=== PATIENT | female | born 1965 | race Two or more races ===

== ENCOUNTER → 2025-08-30 | Outpatient (CLI) | payer MEDICAID, SELFPAY ==
--- NOTE | 2025-08-30 10:18 | XR_ITS ---
EXAMINATION: Thoracic spine 3 views TECHNIQUE: AP and lateral coned lateral upper dorsal spine 3 views Date and time: August 30, 2025, 10:54 a.m. INDICATIONS: Back pain 3 weeks FINDINGS: Prominent osteopenia Prominent thoracic spondylosis No acute thoracic fracture Moderate diffuse thoracic disc narrowing IMPRESSION: Moderate diffuse thoracic degenerative disc disease
--- NOTE | 2025-08-30 10:18 | XR_ITS ---
Examination: Ribs, right, with PA chest, 4 views Technique: Chest PA, RIBS AP, RPO, LPO, 4 views Exam date and time: August 30, 2025, 1027 hours INDICATIONS: Right posterior chest and rib pain 3 weeks Findings: Normal heart size No pneumothorax Prominent osteopenia No acute rib fractures IMPRESSION: No pneumothorax pulmonary contusion or hemothorax No acute rib fractures
== END | disposition home or self-care (01) ==
PROVIDERS: PCP Physician Assistant; Referring Provider Physician Assistant; Visit Provider Physician Assistant
DX: M51.34 Other intervertebral disc degeneration, thoracic region (principal); R07.89 Other chest pain
CPT/HCPCS: 71101; 72072

== ENCOUNTER 2025-09-09 09:18 | Emergency (ER) | payer MEDICAID, SELFPAY ==
[2025-09-09 09:36] VITALS: BP 175/83; PULSE 85; RESP 19; TEMP 36.9; O2SAT 97; BMI 37.9
--- NOTE | 2025-09-09 09:47 | XR_ITS ---
Examination: CT abdomen and pelvis without contrast. Coronal 3-D reconstructions. Sagittal 2-D reconstructions. Date and time of exam: September 09, 2025, 10:00 a.m., comparison March 30, 2023 INDICATIONS: Right-sided abdominal pain radiating to the back beginning 3 weeks ago, history kidney stones CTDI: vol (mGy): 16.7 DLP: (mGycm): 892 Technique: Axial images of the abdomen have been obtained, 3 mm slice thickness Intravenous contrast material has not been administered. Low dose protocols were performed. One or more of the following dose reduction techniques were used; automated exposure control, adjustment of the mA and/or KV according to patient size, use of iterative reconstruction technique. Findings: Severe diffuse fatty infiltration throughout the liver Absent gallbladder Spleen not enlarged No pancreatic or adrenal mass Bilateral renal calculi, the largest lower pole right kidney 14 mm No hydronephrosis or ureteral calculi Normal appendix No bowel obstruction No diverticulitis Contracted urinary bladder No bladder mass or bladder calculi No pelvic mass Grade 1 spondylolisthesis L5 on S1 with advanced degenerative disc disease at this level IMPRESSION: Bilateral nonobstructing renal calculi, no hydronephrosis or ureteral calculi Normal appendix Grade 1 spondylolisthesis L5 on S1 with advanced degenerative disc disease at the L5-S1 level
--- NOTE | 2025-09-09 09:48 | XR_ITS ---
EXAMINATION: PA chest single view TECHNIQUE: Upright view chest single view Date and time: September 09, 2025, 10 0 4:00 a.m. INDICATIONS: Shortness of breath today. FINDINGS: Mild prominence left ventricle No pneumonia or pulmonary edema Intact osseous structures IMPRESSION: No active disease
[2025-09-09 10:12] LABS: Collection Type, Urine Clean Catch
[2025-09-09 10:16] LABS: Basophils # (Auto) 0.1 Thou/mm3 (0.0-0.2); Basophils % (Auto) 0 % (0-2.5); Eosinophils # (Auto) 0.1 Thou/mm3 (0.0-0.5); Eosinophils % (Auto) 1 % (0-10); Hematocrit 42.4 % (36.0-46.0); Hemoglobin 14.4 g/dL (12.0-16.0); Immature Granulocytes Auto 0.06 Thou/mm3 (0.00-0.00); Lymphocytes # (Auto) 2.9 Thou/mm3 (1.0-4.8); Lymphocytes % (Auto) 23 % (10-50); Mean Corpuscular HGB Conc 34.0 g/dl (31.0-37.0); Mean Corpuscular Hemoglobin 31.0 pg (25.0-35.0); Mean Corpuscular Volume 91 fL (80-100); Monocytes # (Auto) 0.7 Thou/mm3 (0.0-0.8); Monocytes % (Auto) 6 % (0-12); Neutrophils # (Auto) 8.5 Thou/mm3 (1.8-7.7); Neutrophils % (Auto) 69 % (37-80); Nucleated Red Blood Cell # 0.00 Thou/mm3 (0.00-0.00); Nucleated Red Blood Cell % 0 /100 WBC (0); Platelet Count 279 Thou/mm3 (140-440); RDW Standard Deviation 39.4 fL (36.4-46.3); Red Blood Count 4.64 Miln/mm3 (4.00-5.20); White Blood Count 12.2 Thou/mm3 (3.6-11.0)
[2025-09-09 10:19] LABS: Bilirubin,Urine Negative (Negative); Blood,Urine Negative (Negative); Clarity,Urine Clear (Clear/Hazy); Color,Urine Colorless (Lt Yel-Yel); Glucose, Urine Negative (Negative); Hyaline Casts,Urine < 1 /hpf (0-1); Ketones,Urine Negative (Negative); Leukocyte Esterase,Urine Negative (Negative); Nitrite,Urine Negative (Negative); PH,Urine 6.0 (5.0-7.0); Protein,Urine Negative (Neg - Trace); RBC,Urine 1 /hpf (0-3); Specific Gravity,Urine 1.010 (1.001-1.035); Squamous Epithelial Cell,Urine 1 /hpf (0-5); Urobilinogen,Urine Negative mg/dL (0.0-1.0); WBC,Urine 1 /hpf (0-5)
[2025-09-09 10:35] LABS: Alanine Aminotransferase 25 U/L (10-49); Albumin, Serum 5.3 gm/dL (3.4-4.8); Albumin/Globulin Ratio 1.9 (1.2-2.2); Alkaline Phosphatase 104 U/L (46-116); Anion Gap 8 (7-16); Aspartate Amino Transferase 16 U/L (0-34); BUN/Creatinine Ratio 14 Ratio (12-20); Bilirubin,Total 0.3 mg/dL (0.3-1.2); Blood Urea Nitrogen 10 mg/dL (9-23); Calcium 10.0 mg/dL (8.3-10.6); Calcium (Corrected) 10.0 mg/dL (8.5-10.1); Carbon Dioxide 29.4 mMol/L (20.0-31.0); Chloride 104 mMol/L (98-107); Creatinine (Component) 0.7 mg/dL (0.6-1.3); Estimated Creatinine Clearance 93.6 mL/min (>60); Globulin 2.8 gm/dL (2.3-3.5); Glucose 162 mg/dL (74-106); Lipase 32 U/L (12-53); Osmolality,Calculated 284 (275-295); Potassium 4.6 mMol/L (3.4-5.1); Sodium 141 mMol/L (136-145); Total Protein 8.1 gm/dL (5.7-8.2); eGFR > 60 See Note
[2025-09-09 11:49] VITALS: BP 165/84; PULSE 83; RESP 18; TEMP 37.1; O2SAT 95
--- NOTE | 2025-09-09 17:33 | PD.EDABDPN ---
ED Abdominal Pain RME/HPI General Chief Complaint: Abdominal Pain Stated complaint: ABD PAIN/FLANK PAIN Time seen by provider: 09/09/25 09:37 Arrival date/time: 09/09/25 09:18 Limitations: no limitations RME / HPI MD complaint: abdominal pain and flank pain Onset (ago): month(s) Consistency: colicky Severity: moderate Severity scale (1-10): 8 Quality: aching Radiation: RUQ Relieving factors: nothing Exacerbating factors: movement RME / HPI narrative: 60-year-old diabetic female with right flank pain times approximately 1 month. Pain is constant worse with lying down and some twisting motions. History of lap [place]. States she is worried she is like her sister and may have large kidney stones. No fever. No burning with urination. Both flanks hurt but right worse than left. No blood in urine. No fever. Related Data Home Medications ?Medication ?Instructions ?Recorded ?Confirmed hydrochlorothiazide 12.5 mg capsule 12.5 mg PO QDAY 11/10/18 11/10/18 lisinopril 20 mg tablet 20 mg PO BID 11/10/18 11/10/18 metformin 1,000 mg tablet 1,000 mg PO BID 11/10/18 11/10/18 Previous Rx's ?Medication ?Instructions ?Recorded ibuprofen 800 mg tablet 800 mg PO TID PRN pain #30 tabs 03/30/23 hydrocodone 5 mg-acetaminophen 325 1 tab PO BID PRN pain 7 days #14 09/09/25 mg tablet tabs tamsulosin 0.4 mg capsule (Flomax) 0.4 mg PO QDAY 1 month #30 caps 09/09/25 Allergies Allergy/AdvReac Type Severity Reaction Status Date / Time No Known Allergies Allergy Verified 11/10/18 14:43 Review of Systems Review of Systems Systems Reviewed: All systems reviewed, normal except as documented Constitutional Constitutional: Denies fever(s) Gastrointestinal Gastrointestinal: Reports as per HPI Genitourinary Genitourinary: Reports as per HPI Musculoskeletal Musculoskeletal: Reports as per HPI ED Exam General Limitations: Present no limitations General appearance: Present alert and in no apparent distress Eye Eye exam: Present normal appearance, PERRL and EOMI Neck Neck exam: Present normal inspection, full ROM and trachea midline Chest Chest inspection: Present normal inspection and symmetric chest wall rise Respiratory Respiratory exam: Present normal lung sounds bilaterally Cardiovascular Cardiovascular exam: Present regular rate, normal rhythm and normal heart sounds Abdominal Exam Abdominal exam: Present soft, tenderness (right and left cvat right greater than left), normal bowel sounds and scar (lap [place] scars ) Extremities Exam Extremities exam: Present normal inspection and full ROM Back Exam Back exam: Present normal inspection and full ROM Psychiatric Psychiatric exam: Present normal affect and normal mood Skin Skin exam: Present warm, dry, intact and normal color Course Quality Measures none Orders Category Date Time Status CT abdomen pelvis wo con Stat Exams 09/09/25 09:47 Completed XR chest 2V Stat Exams 09/09/25 09:48 Completed CBC Stat Lab 09/09/25 10:03 Completed CMP [Comprehensive Metabolic Panel] Stat Lab 09/09/25 10:03 Completed Lipase Stat Lab 09/09/25 10:03 Completed UA [Urinalysis] Stat Lab 09/09/25 10:06 Completed Vital Signs Vital signs: Vital Signs Temperature 98.5 F 09/09/25 09:36 Pulse Rate 85 09/09/25 09:36 Respiratory Rate 19 09/09/25 09:36 Blood Pressure 175/83 H 09/09/25 09:36 Pulse Oximetry (%) 97 09/09/25 09:36 Oxygen Delivery Method Room Air 09/09/25 09:36 Abdominal Pain MDM MDM Narrative MDM Narrative:: Extensive workup patient found to have bilateral undescended kidney stones however no hydronephrosis no urosepsis no infected stone therefore should follow-up with urologist for consideration of lithotripsy advised follow-up with PCP return to ER symptoms worsen Patient data External records reviewed:: [facility] previous records Clinical information provided by:: patient Social determinants that could affect healthcare access:: other (specify) (limited access to appts, encounter in [place] language ) Patient has the following chronic illnesses:: dm How is presenting disease/condition affected by chronic disease/condition?: exacerbated by Evaluation data The following diagnostics were reviewed and interpreted by me:: lab results and radiology exam(s) Lab and/or radiology exams considered but not ordered:: US of kidneys would not change course of treatment Interpretation Summary: CBC with WBCs of 12, CMP with mild LFT elevation, UA with hematuria, CT did show bilateral renal stones. Of concern right side has 14 mm stone however not causing hydro nor infection therefore does not warrant admission Medications / Prescriptions Medications or Prescriptions considered but not ordered:: Antibiotics were considered however no signs of infection at this time Medication administrations:: Patient declined medications for here Consultations Consultation(s) initiated? (list below): No Diagnosis Differential diagnosis abdominal pain: abdominal pain, acute appendicitis, calculus of kidney, constipation, diverticulitis and pancreatitis Most likely diagnosis given after review of the tests above:: Renal colic Hematuria Admission Indicated Admission indicated?: not indicated Admission Request Was there a request for admission?: No Disposition Plan Disposition Plan: Discharge Discharge Attestation Discharge Attestation: The patient and all family members were given an opportunity to ask questions and understood the discharge instructions. Discharge instructions specifically effects, indications for sooner follow up or return to the emergency department, and the expected course of current diagnosis. Patient condition: Stable Discharge Plan Plan Patient Disposition: HOME (Self Care) Discharge Disposition comment: Follow-up with PCP in 2 to 3 days Prescriptions/Referrals Prescriptions/Med Rec: New tamsulosin [Flomax] 0.4 mg capsule 0.4 mg PO QDAY 30 Days Qty: 30 0RF hydrocodone-acetaminophen 5-325 mg tablet 1 tab PO BID MDD 2 PRN (Reason: pain) 7 Days Qty: 14 0RF No Action lisinopril 20 mg Tablet 20 mg PO BID metformin 1,000 mg Tablet 1,000 mg PO BID hydrochlorothiazide 12.5 mg Capsule 12.5 mg PO QDAY ibuprofen 800 mg tablet 800 mg PO TID PRN (Reason: pain) Qty: 30 0RF Problem List Clinical Impression: Calculus of kidney Patient/Caregiver Discharge Instructions Education Materials: ED Kidney Stone Undescended No ..., ED Kidney Stone w/ Colic Print Language: Swazi Stand Alone Forms: Jeannie Award Info., Patient Portal Info Letter PA/AIR DIRECTOR Supervising Physician PA/AIR DIRECTOR Supervising Physician: Dr. Perez
== END 2025-09-09 12:20 | disposition home or self-care (01) ==
PROVIDERS: Physician Assistant; Emergency Provider Emergency Medicine; PCP Physician Assistant
DX: N20.0 Calculus of kidney (principal); R06.02 Shortness of breath
CPT/HCPCS: 36415; 71046; 74176; 80053; 81001; 83690; 85025; 99283